=== PATIENT | female | born 1940 | race Caucasian/White ===

== ENCOUNTER 2022-10-04 07:57 | Inpatient (IN) | payer OTHER, MEDICAID ==
[~2022-10-04] VITALS: Ht 172.7 cm; Wt 104.8 kg
[2022-10-04 08:20] VITALS: BP_SYST 156; PULSE 74; RESP 18; TEMP 97.1; O2SAT 97
[2022-10-04 09:23] LABS: BASOPHILS % (AUTO) 0.2 % (0.0-2.0); EOSINOPHILS # (AUTO) 0.1 K/uL (0.0-0.4); EOSINOPHILS % (AUTO) 1.4 % (0.0-4.0); HEMOGLOBIN 12.8 g/dL (12.0-16.0); LYMPHOCYTES # (AUTO) 0.9 K/uL (1.0-5.5); LYMPHOCYTES % (AUTO) 13.7 % (20.5-51.5); MEAN CORPUSCULAR HEMOGLOBIN 30 pg (27-31); MEAN CORPUSCULAR HGB CONC 32 % (32-36); MEAN CORPUSCULAR VOLUME 94 fL (79.0-98.0); MONOCYTES # (AUTO) 0.7 K/uL (0.0-1.0); MONOCYTES % (AUTO) 10.3 % (1.7-9.3); NEUTROPHILS # (AUTO) 5.1 K/uL (1.8-7.7); NEUTROPHILS % (AUTO) 74.4 % (40.0-70.0); PLATELET COUNT (AUTO) 183 K/uL (130-430); RED BLOOD CELL COUNT(AUTO) 4.27 MIL/uL (4.2-6.2); RED CELL DISTRIBUTION WIDTH 14.3 % (9.0-15.0); WHITE BLOOD COUNT (AUTO) 6.9 K/uL (4.8-10.8)
[2022-10-04 09:25] LABS: ANION GAP 10 (5-15); CALCIUM 8.4 mg/dL (8.4-11.0); CARBON DIOXIDE 26 mmol/L (23-29); CHLORIDE 110 mmol/L (98-107); CREATININE 1.05 mg/dL (0.55-1.30); GLUCOSE 180 mg/dL (74-106); POTASSIUM 3.9 mmol/L (3.5-5.1); SODIUM SERUM 146 mmol/L (136-145); UREA NITROGEN, BLOOD 25 mg/dL (8-21)
[2022-10-04 09:51] LABS: INR 1.1 (0.8-1.2)
[2022-10-04] MEDS ORDERED: MORPHINE 2 MG/ML INJ. SYRINGE IVP ONE (11:00)
[2022-10-04] MEDS ORDERED: ONDANSETRON HCL 4 MG/2 ML VIAL IVP ONE (11:00)
[2022-10-04 12:30] LABS: BILIRUBIN,URINE NEGATIVE (NEGATIVE); BLOOD, URINE TRACE (NEGATIVE); CLARITY/URINE CLEAR (CLEAR); COLOR,URINE YELLOW (YELLOW); GLUCOSE,URINE NEGATIVE (NEGATIVE); KETONES,URINE NEGATIVE (NEGATIVE); LEUKOCYTE ESTERASE ,URINE NEGATIVE (NEGATIVE); NITRITE, URINE NEGATIVE (NEGATIVE); PH,URINE 5.5 (5.0-8.0); PROTEIN URINE 1+ (NEGATIVE); UROBILINOGEN,URINE 0.2 (0.2-1.0)
[2022-10-04] MEDS ORDERED: AMLO10TA88 PO (12:40)
[2022-10-04] MEDS ORDERED: CARB200T8 PO (12:40)
[2022-10-04] MEDS ORDERED: LOSA100T23 PO (12:40)
[2022-10-04] MEDS ORDERED: GLIM4TAB37 PO (12:40)
[2022-10-04] MEDS ORDERED: METF-381 PO (12:40)
[2022-10-04] MEDS ORDERED: ATOR20TA64 PO (12:40)
[2022-10-04] MEDS ORDERED: D5W 1,000 ML IV PRN (13:00)
[2022-10-04] MEDS ORDERED: GLUCOSE (DEXTROSE) ORAL GEL -Adults PO PRN (13:00)
[2022-10-04] MEDS ORDERED: DEXTROSE 50% JECT 50 ML DISP.SYRIN IVP PRN ×2 (13:00)
[2022-10-04 13:28] LABS: BACTERIA,URINE RARE /HPF (None Seen); MUCUS,URINE 1+ /LPF (None Seen); RBC,URINE 0-3 /HPF (0-3); WBC,URINE 0-3 /HPF (0-3)
[2022-10-04 13:38] VITALS: BP_SYST 164; PULSE 80; RESP 18; TEMP 98.4; O2SAT 99
[2022-10-04 14:59] VITALS: BP_SYST 164; PULSE 80; RESP 18; TEMP 98.4
[2022-10-04 15:29] VITALS: O2SAT 99
[2022-10-04 16:00] VITALS: BP_SYST 159; PULSE 85; RESP 18; TEMP 98.3; O2SAT 97
[2022-10-04 20:00] VITALS: BP_SYST 156; PULSE 85; RESP 18; TEMP 98.6; O2SAT 96
[2022-10-04] MEDS ORDERED: ACETAMINOPHEN 500 MG TABLET PO PRN (21:30)
[2022-10-04] MEDS: INSULIN REGULAR, HUMAN 100 UNITS/ML, 3 ML VIAL (humuLIN R) SUBCUT PRN (21:52)
[2022-10-05] VITALS (9 sets, daily range): BP systolic 136–172; PULSE 68–92; RESP 15–16; TEMP 96.8–97.3; O2SAT 97–98
[2022-10-05 06:43] LABS: ALANINE AMINOTRANSFERASE 238 U/L (12-78); ALBUMIN 2.9 g/dL (3.4-4.8); ANION GAP 8 (5-15); ASPARTATE AMINOTRANSFERASE 215 U/L (10-37); CALCIUM 8.3 mg/dL (8.4-11.0); CARBON DIOXIDE 25 mmol/L (23-29); CHLORIDE 108 mmol/L (98-107); CREATININE 0.79 mg/dL (0.55-1.30); GLUCOSE 140 mg/dL (74-106); POTASSIUM 3.5 mmol/L (3.5-5.1); SODIUM SERUM 141 mmol/L (136-145); THYROID STIMULATING HORMONE 3.64 uIu/mL (0.36-3.74); TOTAL BILIRUBIN 0.5 mg/dL (0.0-1.0); TOTAL PROTEIN, SERUM 6.4 g/dL (6.4-8.3); UREA NITROGEN, BLOOD 17 mg/dL (8-21)
[2022-10-05 07:58] LABS: PROTHROMBIN TIME 10.6 SECS (9.5-12.5)
[2022-10-05] MEDS: ATORVASTATIN 20 MG TABLET PO SCH (08:08)
[2022-10-05] MEDS: amLODIPine BESYLATE 10 MG TABLET PO SCH (08:09)
[2022-10-05] MEDS: GLIMEPIRIDE 2 MG TABLET PO SCH (08:09)
[2022-10-05] MEDS: LOSARTAN POTASSIUM 50 MG TABLET (COZAAR) PO SCH (08:09)
[2022-10-05] MEDS ORDERED: SEVOFLURANE 15 MIN GAS INH ONE (11:56)
[2022-10-05] MEDS ORDERED: PROPOFOL 200MG/ 20ML VIAL (DIPRIVAN) IV ONE (11:56)
[2022-10-05] MEDS ORDERED: BUPIVACAINE /PF 0.25% 30 ML VIAL INJ ONE (11:56)
[2022-10-05] MEDS ORDERED: hydrALAZINE HCL 20 MG/ML VIAL ONE (11:56)
[2022-10-05] MEDS ORDERED: ONDANSETRON HCL 4 MG/2 ML VIAL ONE (11:56)
[2022-10-05] MEDS ORDERED: ceFAZolin SODIUM 2 GM VIAL ONE (11:56)
[2022-10-05] MEDS ORDERED: MIDAZOLAM HCL 2 MG/2 ML VIAL (VERSED) ONE (11:56)
[2022-10-05] MEDS ORDERED: ROCURONIUM BROMIDE 10 MG/ML (ZEMURON) ONE (11:56)
[2022-10-05] MEDS ORDERED: SUGAMMADEX SODIUM 200 MG/2 ML VIAL IV ONE (11:56)
[2022-10-05] MEDS ORDERED: LR 1,000 ML IV.SOLN IV ONE (11:56)
[2022-10-05] MEDS ORDERED: HYDROmorphone 2 MG/ML VIAL ONE (11:56)
[2022-10-05] MEDS ORDERED: NS IRRIG SOLN 1000 ML IR ONE (11:56)
[2022-10-05 13:56] LABS: HEMOGLOBIN A1C 7.15 % (<5.7)
[2022-10-05 13:58] LABS: BASOPHILS % (AUTO) 0.7 % (0.0-2.0); EOSINOPHILS # (AUTO) 0.1 K/uL (0.0-0.4); EOSINOPHILS % (AUTO) 1.7 % (0.0-4.0); HEMATOCRIT 38.2 % (36-48); HEMOGLOBIN 12.2 g/dL (12.0-16.0); LYMPHOCYTES # (AUTO) 1.3 K/uL (1.0-5.5); LYMPHOCYTES % (AUTO) 25.5 % (20.5-51.5); MEAN CORPUSCULAR HEMOGLOBIN 30 pg (27-31); MEAN CORPUSCULAR HGB CONC 32 % (32-36); MEAN CORPUSCULAR VOLUME 94 fL (79.0-98.0); MONOCYTES # (AUTO) 0.6 K/uL (0.0-1.0); MONOCYTES % (AUTO) 11.9 % (1.7-9.3); NEUTROPHILS # (AUTO) 3.1 K/uL (1.8-7.7); NEUTROPHILS % (AUTO) 60.2 % (40.0-70.0); PLATELET COUNT (AUTO) 171 K/uL (130-430); RED BLOOD CELL COUNT(AUTO) 4.07 MIL/uL (4.2-6.2); RED CELL DISTRIBUTION WIDTH 14.6 % (9.0-15.0); WHITE BLOOD COUNT (AUTO) 5.2 K/uL (4.8-10.8)
[2022-10-05] MEDS ORDERED: METOCLOPRAMIDE HCL 10 MG/2 ML VIAL IVP PRN (14:00)
[2022-10-05] MEDS ORDERED: NALOXONE HCL 0.4 MG/ML AMP (NARCAN) IVP PRN ×2 (14:00)
[2022-10-05] MEDS ORDERED: ONDANSETRON HCL 4 MG/2 ML VIAL IVP PRN (14:00)
[2022-10-05] MEDS ORDERED: HYDROmorphone 1 MG/ML INJ. CARTRIDGE IVP PRN ×2 (14:00)
[2022-10-05] MEDS ORDERED: METOCLOPRAMIDE HCL 10 MG/2 ML VIAL ONE (15:14)
[2022-10-05] MEDS: INSULIN REGULAR, HUMAN 100 UNITS/ML, 3 ML VIAL (humuLIN R) SUBCUT PRN ×2 (16:23→20:36)
[2022-10-05] MEDS: traMADol HCL HCL 50 MG TABLET (ULTRAM) PO PRN (20:37)
[2022-10-05] MEDS: ceFAZolin SODIUM 2 GM in D5W 100 ML IV SCH (22:22)
[2022-10-06 00:10] VITALS: BP_SYST 145; PULSE 87; RESP 17; TEMP 98; O2SAT 98
[2022-10-06] MEDS: traMADol HCL HCL 50 MG TABLET (ULTRAM) PO PRN ×4 (05:50→16:40)
[2022-10-06] MEDS: ceFAZolin SODIUM 2 GM in D5W 100 ML IV SCH ×3 (05:51→22:28)
[2022-10-06] MEDS: INSULIN REGULAR, HUMAN 100 UNITS/ML, 3 ML VIAL (humuLIN R) SUBCUT PRN ×4 (05:57→20:40)
[2022-10-06 08:30] VITALS: BP_SYST 164; PULSE 82; RESP 16; TEMP 97.4; O2SAT 95
[2022-10-06] MEDS: metFORMIN HCL 500 MG TABLET PO SCH ×2 (09:00→20:38)
[2022-10-06] MEDS: GLIMEPIRIDE 2 MG TABLET PO SCH (09:51)
[2022-10-06] MEDS: ATORVASTATIN 20 MG TABLET PO SCH (09:51)
[2022-10-06] MEDS: amLODIPine BESYLATE 10 MG TABLET PO SCH (09:52)
[2022-10-06] MEDS: LOSARTAN POTASSIUM 50 MG TABLET (COZAAR) PO SCH (09:53)
[2022-10-06 10:17] VITALS: O2SAT 95
[2022-10-06 11:30] VITALS: BP_SYST 163; PULSE 87; RESP 19; TEMP 98.4; O2SAT 94
[2022-10-06] MEDS ORDERED: MULT400T13 PO (12:08)
[2022-10-06] MEDS ORDERED: VITD2000 PO (12:08)
[2022-10-06] MEDS ORDERED: INSU100V7 SUBCUT (12:08)
[2022-10-06] MEDS ORDERED: TRAM50TA2 PO (12:08)
[2022-10-06] MEDS ORDERED: MULTIVITAMINS TAB 1 TABLET PO ONE (12:15)
[2022-10-06] MEDS ORDERED: CHOLECALCIFEROL (VITAMIN D3) 2,000 UNIT TABLET PO ONE (12:15)
[2022-10-06] MEDS ORDERED: DOCUSATE SODIUM 250 MG CAPSULE PO ONE (12:15)
[2022-10-06 16:42] VITALS: BP_SYST 159; PULSE 84; RESP 19; TEMP 98.1; O2SAT 94
[2022-10-06 20:00] VITALS: BP_SYST 158; PULSE 77; RESP 17; TEMP 97.6; O2SAT 95
[2022-10-06] MEDS: DOCUSATE SODIUM 250 MG CAPSULE PO SCH (20:38)
[2022-10-07 00:44] VITALS: BP_SYST 158; PULSE 81; RESP 19; TEMP 97; O2SAT 96
[2022-10-07] MEDS: ceFAZolin SODIUM 2 GM in D5W 100 ML IV SCH ×2 (05:38→13:14)
[2022-10-07] MEDS ORDERED: ONDANSETRON HCL 4 MG/2 ML VIAL IVP PRN (08:00)
[2022-10-07 08:15] VITALS: BP_SYST 137; PULSE 82; RESP 16; TEMP 97.3; O2SAT 98
[2022-10-07] MEDS ORDERED: CHOLECALCIFEROL (VITAMIN D3) 2,000 UNIT TABLET PO SCH (09:00)
[2022-10-07] MEDS ORDERED: MULTIVITAMINS TAB 1 TABLET PO SCH (09:00)
[2022-10-07] MEDS: traMADol HCL HCL 50 MG TABLET (ULTRAM) PO PRN ×2 (09:24→13:33)
[2022-10-07] MEDS: metFORMIN HCL 500 MG TABLET PO SCH (09:26)
[2022-10-07] MEDS: LOSARTAN POTASSIUM 50 MG TABLET (COZAAR) PO SCH (09:27)
[2022-10-07] MEDS: GLIMEPIRIDE 2 MG TABLET PO SCH (09:29)
[2022-10-07] MEDS: ATORVASTATIN 20 MG TABLET PO SCH (09:30)
[2022-10-07] MEDS: DOCUSATE SODIUM 250 MG CAPSULE PO SCH (09:32)
[2022-10-07] MEDS: amLODIPine BESYLATE 10 MG TABLET PO SCH (09:32)
[2022-10-07 11:30] VITALS: BP_SYST 139; PULSE 84; RESP 19; TEMP 97.5; O2SAT 95
[2022-10-07] MEDS: INSULIN REGULAR, HUMAN 100 UNITS/ML, 3 ML VIAL (humuLIN R) SUBCUT PRN (11:48)
[2022-10-07 13:25] VITALS: BP_SYST 139; PULSE 84; RESP 19; TEMP 97.5; O2SAT 95
== END 2022-10-07 14:40 | DRG 511 ==
LOC: SED 07:57 → STU 12:09 → SMU 10-06 21:24
PROVIDERS: ADMIT Internal Medicine; ATTEND Internal Medicine
PROC: 0PSN04Z Reposition Left Carpal with Internal Fixation Device, Open Approach (ICD-10-PCS; 2022-10-05)
PROC: 05HY33Z Insertion of Infusion Device into Upper Vein, Percutaneous Approach (ICD-10-PCS; 2022-10-05)
PROC: B54MZZA Ultrasonography of Right Upper Extremity Veins, Guidance (ICD-10-PCS; 2022-10-05)
PROC: 0PSJ04Z Reposition Left Radius with Internal Fixation Device, Open Approach (ICD-10-PCS; principal; 2022-10-05 12:02)
DX: S52.502A Unspecified fracture of the lower end of left radius, initial encounter for closed fracture (principal); E44.1 Mild protein-calorie malnutrition; S62.102A Fracture of unspecified carpal bone, left wrist, initial encounter for closed fracture; R09.02 Hypoxemia; I49.9 Cardiac arrhythmia, unspecified; E66.01 Morbid (severe) obesity due to excess calories; G50.0 Trigeminal neuralgia; W18.39XA Other fall on same level, initial encounter; E78.5 Hyperlipidemia, unspecified; E11.9 Type 2 diabetes mellitus without complications; I10 Essential (primary) hypertension; Z88.8 Allergy status to other drugs, medicaments and biological substances; Z79.899 Other long term (current) drug therapy; Z90.49 Acquired absence of other specified parts of digestive tract; Y93.89 Activity, other specified; Y92.89 Other specified places as the place of occurrence of the external cause; Y99.8 Other external cause status; Z68.35 Body mass index [BMI] 35.0-35.9, adult
CPT/HCPCS: 36415; 71045; 73090; 76000; 80048; 80053; 80156; 81000; 82962; 83037; 84439; 84443; 85025; 85610-TC; 85730-TC; 86886; 86900; 86901; 87081; 93005; 93306; 96374; 96375; 97116-GP; 97163-GP; 97530-GP; 99285; C1713; C1751; C1769; G0378; J0360; J1170; J1815; J2270; J2405; J2704; J2765; J3465; J3490; J7040; J7060; J7120

== ENCOUNTER 2022-12-28 11:03 | Day surgery (SDC) | payer OTHER, MEDICAID ==
[~2022-12-28] VITALS: Ht 144.8 cm; Wt 98.4 kg
[~2022-12-28 11:03] MED LIST: AMLO10TA88 PO; ATOR20TA64 PO; CARB200T8 PO; GLIM4TAB37 PO; INSU100V7 SUBCUT; LOSA100T24 PO; METF-381 PO; MULT400T13 PO; TRAM50TA2 PO; VITD2000 PO
[2022-12-28] MEDS ORDERED: CEFAZOLIN SOD 2 GM in D5W 50 ML IV ONE (11:30)
[2022-12-28] MEDS ORDERED: ACETAMINOPHEN 500 MG TABLET PO ONE (11:30)
[2022-12-28] MEDS ORDERED: ACETAMINOPHEN 500 MG TABLET ONE (12:12)
[2022-12-28] MEDS ORDERED: PROPOFOL 200MG/ 20ML VIAL (DIPRIVAN) IV ONE (14:37)
[2022-12-28] MEDS ORDERED: DESFLURANE 15 MIN GAS INH ONE (14:37)
[2022-12-28] MEDS ORDERED: NS IRRIG SOLN 1000 ML IR ONE (14:37)
[2022-12-28] MEDS ORDERED: WATER FOR IRRIGATION,STERILE 1,000 ML IRRIG.SOLN IR ONE (14:37)
[2022-12-28] MEDS ORDERED: BUPIVACAINE /EPINEPHRINE/PF 0.25% 30 ML VIAL ONE (14:37)
[2022-12-28] MEDS ORDERED: ceFAZolin SODIUM 1 GM VIAL ONE (14:37)
[2022-12-28 15:24] VITALS: O2SAT 100
[2022-12-28] MEDS ORDERED: hydrALAZINE HCL 20 MG/ML VIAL ONE (16:25)
[2022-12-28] MEDS ORDERED: hydrALAZINE HCL 20 MG/ML VIAL IVP ONE (16:30)
[2022-12-28 18:39] VITALS: BP_SYST 157; PULSE 72; RESP 18
== END 2022-12-28 18:20 | disposition home or self-care (01) ==
LOC: SDS 11:03 → SMU 11:08 → SDS 18:20
PROVIDERS: ATTEND Student in an Organized Health Care Education/Training Program
DX: Z47.2 Encounter for removal of internal fixation device (principal); I10 Essential (primary) hypertension; E11.9 Type 2 diabetes mellitus without complications; Z79.84 Long term (current) use of oral hypoglycemic drugs; Z79.899 Other long term (current) drug therapy
CPT/HCPCS: 20680; 82962; 87081; 76000; J3490; J0690; J0360; J2704; J7060